=== PATIENT | female | born 1940 | race Caucasian/White ===

== ENCOUNTER 2018-07-25 06:44 | Inpatient (IN) | payer BC ==
[2018-07-19 11:14] VITALS: BMI 27.6
[~2018-07-25 06:44] MED LIST: TRANEXAMIC ACID 1000 MG/10 ML VIAL IVPB ONE; VANCOMYCIN 1,000 MG VIAL (RESTRICTED TO ID ONLY) IVPB ONE
[2018-07-25] MEDS ORDERED: CEFAZOLIN 1 GM/D5W 1 GM/50 ML BAG IVPB ONE (07:22)
[2018-07-25] MEDS ORDERED: GABAPENTIN 300 MG CAPSULE (FP) PO ONE (07:22)
[2018-07-25] MEDS ORDERED: CELECOXIB 200 MG CAPSULE PO ONE (07:22)
[2018-07-25] MEDS ORDERED: oxyCODONE HCL 10 MG SUSTAINED ACTING TABLET PO ONE (07:22)
[2018-07-25] MEDS ORDERED: TRANEXAMIC ACID 1000 MG/10 ML VIAL IVPUSH ONE (07:22)
[2018-07-25] MEDS ORDERED: PANTOPRAZOLE 40 MG TABLET (FP) PO ONE (07:23)
--- NOTE | 2018-07-25 07:42 | HP ---
Admitting History and Physical - Admission Chief Complaint: left knee osteoarthritis x years History of Present Illness: 78 year old female presents in regard to her left knee. Longstanding history of left knee osteoarthritis. Patient complains of pain, limited ROM, difficulty ambulating and difficulty completing activities of daily living. Patient has failed conservative treatment measures including PO medications, injections, exercise programs and activity modifications. At this point, patient wishes to proceed with surgical intervention - left total knee arthroplasty, MAKOplasty. History Source: Patient - Past Medical History Cardiovascular: Yes: HTN Gastrointestinal: Yes: GERD Musculoskeletal: Yes: Osteoarthritis - Past Surgical History Additional Past Surgical History: See written history & physical. - Smoking History Smoking history: Former smoker Have you smoked in the past 12 months: Yes If you are a former smoker, when did you quit?: 10 YEARS AGO - Alcohol/Substance Use Hx Alcohol Use: Yes (BEER 2 PER DAY) Home Medications - Allergies Allergies/Adverse Reactions: Allergies Allergy/AdvReac Type Severity Reaction Status Date / Time bee venom protein (honey bee) Allergy Intermediate Swelling Verified 07/25/18 07 :30 No Known Drug Allergies Allergy Verified 07/25/18 07:30 - Home Medications Home Medications: Ambulatory Orders Amlodipine Besylate 5 mg PO DAILY 07/19/18 Ibuprofen [Advil -] 400 mg PO BID PRN 07/19/18 Omeprazole/Sodium Bicarbonate [Zegerid 40mg Packet] 1 each PO DAILY 07/19/18 Acetaminophen [Tylenol Arthritis] 650 mg PO PRN PRN 07/25/18 Review of Systems - Review of Systems Musculoskeletal: reports: Crepitus (left knee), Decreased ROM (left knee), Joint Pain (left knee), Joint Swelling (left knee) Physical Examination Constitutional: Yes: Well Nourished, No Distress Eyes: Yes: Conjunctiva Clear HENT: Yes: Atraumatic Neck: Yes: Supple Cardiovascular: Yes: Regular Rate and Rhythm Respiratory: Yes: Regular Gastrointestinal: Yes: Soft ...Rectal Exam: Yes: Deferred Musculoskeletal: Yes: Joint Stiffness (left knee), Joint Swelling (left knee) Assessment/Plan This is a 78 year old female presenting in regard to her left knee. Longstanding history of left knee osteoarthritis. Patient complains of pain, limited ROM, difficulty ambulating and difficulty completing activities of daily living. Patient has failed conservative treatment measures including PO medications, injections, exercise programs and activity modifications. At this point, patient wishes to proceed with surgical intervention - left total knee arthroplasty, MAKOplasty. Pros, cons, risks, benefits and alternatives of a left total knee arthroplasty, MAKOplasty were discussed with thr patient at length. Patient confirms their understanding and consents to proceed with a left total knee arthroplasty, MAKOplasty.
[2018-07-25] MEDS ORDERED: BUPIVACAINE LIPOSOME/PF (EXPAREL) 266 MG/20 ML VIAL ONE (08:32)
[2018-07-25] MEDS ORDERED: SODIUM CHLORIDE 0.9% P/F 10 ML VIAL IJ ONE (08:32)
[2018-07-25] MEDS ORDERED: MIDAZOLAM HCL 2 MG/2 ML SINGLE DOSE VIAL ONE ×3 (08:32→11:29)
[2018-07-25] MEDS ORDERED: ceFAZolin SODIUM 1 GM VIAL ONE ×2 (08:35→09:56)
[2018-07-25] MEDS ORDERED: VANCOMYCIN 1,000 MG VIAL (RESTRICTED TO ID ONLY) ONE (08:35)
[2018-07-25] MEDS ORDERED: SUCCINYLCHOLINE CHLORIDE 200 MG/10 ML VIAL ONE (09:48)
[2018-07-25] MEDS ORDERED: PROPOFOL 20 ML ONE (09:48)
[2018-07-25] MEDS ORDERED: DEXAMETHASONE SOD PHOSPHATE 4 MG/1 ML VIAL ONE (09:56)
[2018-07-25] MEDS ORDERED: ONDANSETRON 4 MG/2 ML VIAL ONE (09:56)
[2018-07-25] MEDS ORDERED: TRANEXAMIC ACID 1000 MG/10 ML VIAL ONE (09:56)
[2018-07-25] MEDS ORDERED: VANCOMYCIN 1,000 MG VIAL (RESTRICTED TO ID ONLY) IVPB ONE (12:15)
[2018-07-25] MEDS ORDERED: TRANEXAMIC ACID 1000 MG/10 ML VIAL IVPB ONE (12:28)
[2018-07-25] MEDS ORDERED: ACETAMINOPHEN INJECTION 0 ML IVPB ONE (12:49)
[2018-07-25] MEDS ORDERED: KETOROLAC TROMETHAMINE 30 MG/1 ML VIAL ONE (12:49)
[2018-07-25] MEDS ORDERED: traMADol HCL 50 MG TABLET ONE (12:49)
--- NOTE | 2018-07-25 13:07 | OP ---
Operative Note - Note: Operative Date: 07/25/18 Pre-Operative Diagnosis: Left knee OA Operation: left LIANET TKA Post-Operative Diagnosis: Same as Pre-op Surgeon: Sundeep Aragon Digital Solution Architect: Shanthi Adkins Anesthesia: Spinal Estimated Blood Loss (mls): 100
[2018-07-25] MEDS ORDERED: LACTATED RINGERS SOLUTION 1,000 ML IV SCH ×2 (13:15→13:30)
[2018-07-25] MEDS ORDERED: ONDANSETRON 4 MG/2 ML VIAL IVPUSH PRN ×2 (13:15→13:25)
[2018-07-25] MEDS ORDERED: oxyCODONE HCL 5 MG TABLET PO PRN (13:15)
[2018-07-25] MEDS ORDERED: ACETAMINOPHEN 1000 MG/100 ML VIAL (NON FORMULARY) IVPB ONE (13:20)
[2018-07-25] MEDS ORDERED: MAG HYDROX/AL HYDROX/SIMETH 30 ML UNIT-DOSE CUP PO PRN (13:25)
[2018-07-25] MEDS ORDERED: MAGNESIUM HYDROX 2400MG/30ML ORAL SUSPENSION 30 ML CUP PO PRN (13:25)
[2018-07-25] MEDS ORDERED: KETOROLAC TROMETHAMINE 30 MG/1 ML VIAL IVPUSH SCH (13:30)
[2018-07-25] MEDS: ACETAMINOPHEN 1000 MG/100 ML VIAL (NON FORMULARY) IVPB ONE ×2 (13:30→15:47)
[2018-07-25] MEDS: KETOROLAC TROMETHAMINE 15 MG/ML VIAL IVPUSH SCH ×3 (13:45→21:27)
[2018-07-25] MEDS: traMADol HCL 50 MG TABLET PO SCH ×2 (13:45→20:18)
--- NOTE | 2018-07-25 13:45 | SPEC ---
DATE OF OPERATION: 07/25/2018 PREOPERATIVE DIAGNOSIS: Left knee osteoarthritis. POSTOPERATIVE DIAGNOSIS: Left knee osteoarthritis. PROCEDURE: Left total knee replacement, MAKOplasty robotic navigation. ATTENDING: Elena Pate MD PROFESSOR OF PRACTICE: OSWALDO Soriano ANESTHESIA: Spinal plus sedation. ESTIMATED BLOOD LOSS: 100 mL. COMPLICATIONS: None. DISPOSITION: The patient was transferred to the PACU in stable condition. IMPLANTS USED: [place] Triathlon size 3 femoral component, [place] Triathlon size 2 tibial component, 13-mm posterior-stabilized polyethylene component, 35-mm patellar component. INDICATIONS: This is a 78-year-old female who presented to the office complaining of severe left knee pain. She was seen and examined by Dr. Pate and diagnosed with severe left knee osteoarthritis. She was initially treated non-operatively with injections and medications and physical therapy, but continued to have severe pain and ambulatory dysfunction. She was, therefore, indicated for a left total knee replacement. The risks, benefits, and alternatives to the surgery were explained to the patient in great detail, and she elected to proceed with the procedure. DESCRIPTION OF PROCEDURE: On the day of surgery, the patient was taken to the operating room and placed on the OR table. Spinal anesthesia was administered by the anesthesiologist. The patient was then positioned supine on the table and all bony prominences were padded. The knee was then prepped and draped in the usual sterile fashion and intravenous antibiotics were given for infection prophylaxis. A surgical time-out was then performed with the team, and the patients identity, procedure, side, availability of implants, and the administration of antibiotics was confirmed. With the knee flexed, a midline incision was made and carried down through the subcutaneous fat to the underlying retinaculum. A medial parapatellar arthrotomy was performed. This was followed by a subperiosteal dissection of the tissue off the proximal, medial tibia. A portion of fat pad was removed from under the patellar tendon, and a small portion of fat was excised off the distal supracondylar femur. Electrocautery and an [employer] bipolar sealing device were used to achieve hemostasis. The knee was then flexed further and the anterior horn of the lateral meniscus was released from the midline. Next, the anterior and posterior cruciate ligaments were transected. Grade 4 changes were noted diffusely throughout the knee. Femoral and tibial checkpoints were then placed in the appropriate location using a mallet. Two parallel bicortical self-drilling pins were placed in the tibial diaphysis after making stab incisions and bluntly dissecting down to bone. Two pins were then placed in the distal supracondylar femur. The [employer] navigation arrays were then attached to both the femoral and tibial pins and the lower extremity was then registered to the robotic navigation device using various joint movements, as well as inputting several dozen reference points. The knee was then taken through a full range of motion with a corrective force applied. Alignment in varus/valgus as well as flexion/extension and soft tissue balance was measured in various positions. The navigation device showed a numerical and graphic representation of the soft tissue balance. The components were repositioned virtually using the software until optimal soft tissue balance was achieved on screen. Once this was accomplished, the final plan was saved and sent to the robot. Self-retaining retractors were then placed at the joint line for exposure and protection of the collateral ligaments. The robot was brought into the sterile field and registered with the navigation device. The robotic arm with attached oscillating saw blade was then used to perform femoral and tibial bone cuts as per the saved software plan. The femoral box cut was made using the appropriately sized manual cutting guide. The knee was then irrigated. Trial components were placed and the knee was taken through a full range of motion to assess soft tissue balance and alignment. The range of motion was found to be excellent and the soft tissue balance was optimal and according to plan. The knee was then put into extension and the patella everted. The synovium around the patella was circumscribed with electrocautery. A caliper was used to measure the patellar thickness and a saw was then used to resect the patella at the chondro-osseous junction. The cut surface was then sized and drilled for the appropriate patellar button, with care taken to medialize it. A trial patella was then placed and the knee was again taken through a full range of motion. The knee was found to have both good balance and good patellar tracking. All of the components were removed except the tibial base plate. The appropriate instrumentation was used to drill and punch the proximal tibia for the keel of the final component. All bony surfaces were then cleaned with pulsatile lavage and dried. Bone cement was then prepared on the back table, and final components were cemented in place in the usual fashion. Extruded cement was removed. The polyethylene trial was placed, the knee was put into extension, and axial pressure was applied for compression while the cement hardened. The patellar button was similarly cemented into place. Once the cement had hardened, the knee was taken through a full range of motion to assess stability, balance, and patellar tracking. This was found to be optimal and the trial polyethylene was exchanged for the appropriately sized real implant. The wound was then thoroughly irrigated with normal saline. A 3-minute dilute Betadine lavage was performed. The knee was again irrigated using a pulsatile lavage device. A periarticular injection was used to locally infiltrate the capsular tissues surrounding the implant and prosthesis. Then No. 1 Polysorb and 0 VLoc 180 barbed sutures were used to close the arthrotomy. Then No. 1 Polysorb and 2-0 VLoc 90 sutures were used in the subcutaneous tissues. Then 4-0 undyed Vicryl and Dermabond skin adhesive was used to close the stab incisions made for the navigation pins. The skin was closed using both 3-0 VLoc 90 suture in a running subcuticular fashion and Dermabond skin adhesive. Once this was completed a sterile Aquacel dressing and compressive José Antonio-wrap was applied. The patient was then awakened and taken to the PACU in stable condition. ELENA PATE M.D. [id number]
[2018-07-25] MEDS: CEFAZOLIN 2 GM/D5W 2 GM/50 ML ML IVPB SCH (18:28)
[2018-07-25] MEDS ORDERED: DEXAMETHASONE SOD PHOSPHATE 10 MG/1 ML VIAL IVPB ONE (20:00)
[2018-07-25] MEDS: ACETAMINOPHEN 325 MG TABLET (FP) PO SCH (20:19)
[2018-07-25] MEDS: CELECOXIB 200 MG CAPSULE PO SCH (21:29)
[2018-07-25] MEDS: oxyCODONE HCL 10 MG SUSTAINED ACTING TABLET PO SCH (21:29)
[2018-07-25] MEDS: SENNOSIDES/DOCUSATE COMBO (SENNA PLUS) TABLET (UD) PO SCH (21:29)
[2018-07-25] MEDS: GABAPENTIN 300 MG CAPSULE (FP) PO SCH (21:29)
[2018-07-25] MEDS: ASCORBIC ACID 500 MG TABLET (FP) PO SCH (21:29)
[2018-07-25] MEDS ORDERED: GABAPENTIN 300 MG CAPSULE (FP) PO SCH (22:00)
[2018-07-26] MEDS: traMADol HCL 50 MG TABLET PO SCH ×4 (01:03→21:50)
[2018-07-26] MEDS: ACETAMINOPHEN 325 MG TABLET (FP) PO SCH ×4 (01:04→21:50)
[2018-07-26] MEDS: CEFAZOLIN 2 GM/D5W 2 GM/50 ML ML IVPB SCH (01:05)
[2018-07-26] MEDS: KETOROLAC TROMETHAMINE 15 MG/ML VIAL IVPUSH SCH (03:00)
[2018-07-26] MEDS: oxyCODONE HCL 5 MG TABLET PO PRN ×2 (06:43→17:22)
[2018-07-26 08:01] LABS: CALCIUM 8.6 mg/dl (8.5-10); POTASSIUM 4.3 mmol/L (3.5-5.1)
[2018-07-26 08:03] LABS: HEMATOCRIT 32.5 % (32.4-45.2); MCH 28.4 pg (25.7-33.7); MCHC 33.8 g/dl (32.0-36.0); MEAN PLT VOLUME 9.7 fl (7.5-11.1); PLATELET COUNT 151 K/MM3 (134-434); RBC 3.87 M/mm3 (3.60-5.2); RDW 13.6 % (11.6-15.6); WHITE BLOOD COUNT 9.3 K/mm3 (4.0-10.8)
[2018-07-26] MEDS: ASPIRIN 325 MG TABLET PO SCH (08:07)
[2018-07-26] MEDS: CELECOXIB 200 MG CAPSULE PO SCH ×2 (09:33→21:54)
[2018-07-26] MEDS: GABAPENTIN 300 MG CAPSULE (FP) PO SCH ×2 (09:33→21:54)
[2018-07-26] MEDS: oxyCODONE HCL 10 MG SUSTAINED ACTING TABLET PO SCH ×2 (09:34→21:54)
[2018-07-26] MEDS: amLODIPine BESYLATE 5 MG TABLET (FP) PO SCH (09:34)
[2018-07-26] MEDS: SENNOSIDES/DOCUSATE COMBO (SENNA PLUS) TABLET (UD) PO SCH ×2 (09:35→21:53)
[2018-07-26] MEDS: ASCORBIC ACID 500 MG TABLET (FP) PO SCH ×2 (09:35→21:54)
[2018-07-26] MEDS: PANTOPRAZOLE 40 MG TABLET (FP) PO SCH (09:35)
[2018-07-26] MEDS: MULTIVITAMINS (DAILY MVI) TABLET (FP) PO SCH (09:35)
--- NOTE | 2018-07-26 11:26 | PN ---
Progress Note, Physician Chief Complaint: s/p left total knee replacement under spinal anesthesia History of Present Illness: post op day one, peripheral nerve block for post op pain control. - Current Medication List Current Medications: Active Medications Acetaminophen (Tylenol -) 650 mg PO Q6H [facility] Stop: 07/28/18 19:59 Last Admin: 07/26/18 08:09 Dose: 650 mg Al Hydroxide/Mg Hydroxide (Mylanta Oral Suspension -) 30 ml PO Q4H PRN PRN Reason: DYSPEPSIA Amlodipine Besylate (Norvasc -) 5 mg PO DAILY [facility] Last Admin: 07/26/18 09:34 Dose: 5 mg Ascorbic Acid (Vitamin C -) 500 mg PO BID [facility] Last Admin: 07/26/18 09:35 Dose: 500 mg Aspirin (Asa -) 325 mg PO DAILY@0800 [facility] Last Admin: 07/26/18 08:07 Dose: 325 mg Celecoxib (Celebrex -) 200 mg PO BID [facility] Last Admin: 07/26/18 09:33 Dose: 200 mg Fentanyl (Sublimaze Injection -) 50 mcg IVPUSH [id number] PRN PRN Reason: PAIN-PACU ORDER X 4 DOSES ONLY Gabapentin (Neurontin -) 300 mg PO BID [facility] Stop: 07/28/18 21:59 Last Admin: 07/26/18 09:33 Dose: 300 mg Lactated Ringer's (Lactated Ringers Solution) 1,000 mls @ 125 mls/hr IV ASDIR [facility] Last Admin: 07/25/18 15:10 Dose: Not Given Magnesium Hydroxide (Milk Of Magnesia -) 30 ml PO PRN PRN PRN Reason: CONSTIPATION Multivitamins/Minerals/Vitamin C (Tab-A-Vit -) 1 tab PO DAILY [facility] Last Admin: 07/26/18 09:35 Dose: 1 tab Ondansetron HCl (Zofran Injection) 4 mg IVPUSH Q6H PRN PRN Reason: NAUSEA Oxycodone HCl (Roxicodone -) 10 mg PO Q3H PRN PRN Reason: PAIN LEVEL 6-10 Oxycodone HCl (Roxicodone -) 5 mg PO Q3H PRN PRN Reason: PAIN LEVEL 1-5 Last Admin: 07/26/18 06:43 Dose: 5 mg Oxycodone HCl (Oxycontin -) 10 mg PO BID [facility] Stop: 07/28/18 13:16 Last Admin: 07/26/18 09:34 Dose: 10 mg Pantoprazole Sodium (Protonix -) 40 mg PO DAILY [facility] Last Admin: 07/26/18 09:35 Dose: 40 mg Senna/Docusate Sodium (Pericolace -) 2 tablet PO BID [facility] Last Admin: 07/26/18 09:35 Dose: 2 tablet Tramadol HCl (Ultram -) 50 mg PO Q6H [facility] Last Admin: 07/26/18 08:08 Dose: 50 mg - Objective Vital Signs: Vital Signs Temperature 97.9 F 07/26/18 09:00 Pulse Rate 72 07/26/18 09:00 Respiratory Rate 20 07/26/18 09:00 Blood Pressure 133/61 07/26/18 09:00 O2 Sat by Pulse Oximetry (%) 100 07/26/18 05:00 Constitutional: Yes: Well Nourished Cardiovascular: Yes: WNL Respiratory: Yes: WNL Gastrointestinal: Yes: WNL Labs: CBC, BMP 07/26/18 07:13 07/26/18 07:13 Assessment/Plan No adverse effects of anesthetic, pain controlled, dept of anesthesia will sign off care at this time.
--- NOTE | 2018-07-26 19:07 | PN ---
Progress Note (short form) - Note Progress Note: Pt seen and examined. Doing well AVSS Selected Entries 07/26/18 07/26/18 14:07 18:40 Temperature 98.3 F Pulse Rate 88 Respiratory 20 Rate Blood Pressure 140/73 O2 Sat by Pulse 99 Oximetry (%) Laboratory Tests 07/26/18 07/26/18 07:13 07:13 WBC 9.3 Hgb 11.0 Hct 32.5 Plt Count 151 Sodium 132 L Potassium 4.3 Chloride 97 L Carbon Dioxide 26 Anion Gap 9 BUN 20.0 H Creatinine 1.0 Est GFR (CKD-EPI)AfAm 62.05 Est GFR (CKD-EPI)NonAf 53.54 Random Glucose 142 H Calcium 8.6 Gen: NAD LLE: c/d/i, NVID A/P POD#1 s/p L LIANET TKA PT/OOB - WBAT LLE D/C home in AM
[2018-07-27 01:03] VITALS: PULSE 67
[2018-07-27] MEDS: traMADol HCL 50 MG TABLET PO SCH (03:11)
[2018-07-27] MEDS: ACETAMINOPHEN 325 MG TABLET (FP) PO SCH ×2 (03:12→08:02)
[2018-07-27 06:04] VITALS: BP 136/62; TEMP 98.2
[2018-07-27] MEDS: ASPIRIN 325 MG TABLET PO SCH (08:00)
[2018-07-27 08:24] LABS: HEMATOCRIT 31.5 % (32.4-45.2); HEMOGLOBIN 10.4 GM/dl (10.7-15.3); MCH 27.3 pg (25.7-33.7); MCHC 32.8 g/dl (32.0-36.0); MEAN CELL VOLUME 83.1 fl (80-96); MEAN PLT VOLUME 9.7 fl (7.5-11.1); PLATELET COUNT 150 K/MM3 (134-434); RBC 3.79 M/mm3 (3.60-5.2); RDW 13.2 % (11.6-15.6); WHITE BLOOD COUNT 6.9 K/mm3 (4.0-10.8)
--- NOTE | 2018-07-27 10:54 | DS ---
Physical Examination Vital Signs: Vital Signs Temperature 98.2 F 07/27/18 05:00 Pulse Rate 67 07/27/18 05:00 Respiratory Rate 18 07/27/18 05:00 Blood Pressure 136/62 07/27/18 05:00 O2 Sat by Pulse Oximetry (%) 97 07/27/18 05:00 Labs: CBC, BMP 07/27/18 07:12 07/26/18 07:13 Discharge Summary Reason For Visit: LEFT KNEE OSTEOARTHRITIS Current Active Problems Osteoarthritis of left knee (Acute) Procedures: Principal: left joseph TKA Hospital Course: Admitted for elective surgery. Procedure performed without complications. Pt received postoperative antibiotic prophylaxis and DVT ppx. Ambulated with physical therapy. Stable for discharge home with outpatient followup. Condition: Stable - Instructions Diet, Activity, Other Instructions: Dr. Aragon - Knee Replacement Instructions Keep the Aquacel dressing on until removed by Dr. Aragon in the office it is antibacterial and waterproof and you can shower with it on. Call the office for a follow-up appointment with Dr. Aragon on August 07. Take one Aspirin 325mg daily for 6 weeks to prevent blood clots in your legs. Continue taking Omeprazole daily for the next 6 weeks to protect against heartburn and ulcers. Take Cephalexin (antibiotic) 3x/day for 10 days to help prevent skin infection. Take Celebrex 200mg daily for 30 days to reduce swelling and inflammation. Take a multivitamin, stool softener, and extra Vitamin C supplement daily. For pain: *Mild pain (1-3/10): Take 1 Tramadol tablet every 4 hours as needed. Moderate pain (4-6/10): Take 1 Tramadol tablet and 1 Percocet tablet every 4 hours as needed. Severe pain (7-10/10): Take 1 Tramadol tablet and 2 Percocet tablets every 4 hours as needed. Activity: You can put as much weight on the operative leg as you want. Right after you get home, there will be a physical therapist coming to your house to help you walk around and bend/straighten your knee. After your follow-up appointment, you will be sent for more intensive outpatient physical therapy which will include machines and equipment that the home therapist cannot bring to your house. Always use a walker or cane for balance and to prevent falls. Expect to see swelling/bruising from the operative site all the way down to your toes. Wear the compression stocking on the operative side during the day to minimize how much swelling there is in your foot/ankle. Don't wear the stocking at night. You don't have to wear a stocking on the other side. Disposition: [facility]/HOME HEALTH CARE - Home Medications Comprehensive Discharge Medication List: Ambulatory Orders Amlodipine Besylate 5 mg PO DAILY 07/19/18 Omeprazole/Sodium Bicarbonate [Zegerid 40mg Packet] 1 each PO DAILY 07/19/18 Ascorbic Acid [Vitamin C -] 500 mg PO BID tablet 07/27/18 Aspirin [ASA -] 325 mg PO DAILY@0800 tablet 07/27/18 Celecoxib [CeleBREX -] 200 mg PO DAILY #30 capsule 07/27/18 Cephalexin Monohydrate [Keflex -] 500 mg PO TID #30 capsule 07/27/18 Multivitamins [Multivit ([facility] Formulary)] 1 tab PO DAILY tab 07/27/18 Oxycodone HCl/Acetaminophen [Percocet 5-325 mg Tablet] 1 - 2 tab PO Q4H PRN #60 tablet MDD 10 07/27/18 Sennosides/Docusate Sodium [Pericolace -] 2 tablet PO BID tablet 07/27/18 traMADol HCL [Ultram -] 50 mg PO Q4H PRN #42 tablet MDD 6 07/27/18
[2018-07-27] MEDS: oxyCODONE HCL 10 MG SUSTAINED ACTING TABLET PO SCH (12:11)
[2018-07-27] MEDS: PANTOPRAZOLE 40 MG TABLET (FP) PO SCH (12:12)
[2018-07-27] MEDS: MULTIVITAMINS (DAILY MVI) TABLET (FP) PO SCH (12:12)
[2018-07-27] MEDS: GABAPENTIN 300 MG CAPSULE (FP) PO SCH (12:12)
[2018-07-27] MEDS: CELECOXIB 200 MG CAPSULE PO SCH (12:12)
[2018-07-27] MEDS: ASCORBIC ACID 500 MG TABLET (FP) PO SCH (12:12)
[2018-07-27] MEDS: amLODIPine BESYLATE 5 MG TABLET (FP) PO SCH (12:12)
[2018-07-27] MEDS: SENNOSIDES/DOCUSATE COMBO (SENNA PLUS) TABLET (UD) PO SCH (12:13)
--- NOTE | 2018-07-29 17:40 | PATH ---
Surgical Pathology Report Patient Name: MYNOR HANEY Med. Rec. #: [id number] /Age/Gender: 1940 (Age: 78) / F Account: [id number] Location: [facility] MED-SURG Taken: 07/25/2018 Received: 07/25/2018 Reported: 07/29/2018 Physicians: Sundeep Aragon M.D. Specimen(s) Received BONE LEFT KNEE Clinical History Left knee osteoarthritis Final Diagnosis BONE, KNEE, LEFT, TOTAL KNEE REPLACEMENT MAKOPLASTY: BONE WITH DEGENERATIVE JOINT DISEASE. Electronically Signed Rosario Cuello M.D. Gross Description Received in formalin labeled "bone left knee," is a 10.5 x 6.5 x 1.7 cm aggregate of multiple portions of bone and soft tissue, consistent with knee bones. One of the articular surfaces displays a 2.4 cm in greatest dimension area of eburnation. The remaining articular surfaces are calloway-brown and diffusely granular. The underlying trabecular bone is yellow and hard. Fuel Handler sections are submitted in one cassette, following decalcification. /07/26/2018 [facility]07/26/2018
== END 2018-07-27 11:45 | disposition home health service (06) | DRG 470 ==
LOC: FM/S 06:44
PROVIDERS: ADMIT Student in an Organized Health Care Education/Training Program; ATTEND Student in an Organized Health Care Education/Training Program
PROC: 8E0Y0CZ Robotic Assisted Procedure of Lower Extremity, Open Approach (ICD-10-PCS; 2018-07-25)
PROC: 0SRD0J9 Replacement of Left Knee Joint with Synthetic Substitute, Cemented, Open Approach (ICD-10-PCS; principal; 2018-07-25 10:22)
DX: M17.12 Unilateral primary osteoarthritis, left knee (principal); I10 Essential (primary) hypertension; K21.9 Gastro-esophageal reflux disease without esophagitis
CPT/HCPCS: 36415; 73560-TC-LT-FY; 80048; 85027; 88305-TC; 88311-TC; 94760; 97116-GP; 97163-GP; J0131; J1100

== ENCOUNTER 2023-06-22 15:18 | Inpatient (IN) | payer BC, OTHER ==
[2023-06-22] MEDS: SODIUM CHLORIDE 0.9% 500 ML INFUS.BAG IV ONE ×4 (15:35→23:43)
[2023-06-22 15:37] LABS: HEMOGLOBIN 12.8 GM/dL (10.7-15.3); MCH 29.4 pg (25.7-33.7); MCHC 34.7 g/dl (32.0-36.0); MEAN CELL VOLUME 84.7 fl (80-96); MEAN PLT VOLUME 9.3 fl (7.5-11.1); PLATELET COUNT 56 10^3/uL (134-434); RBC 4.37 M/mm3 (3.60-5.2); RDW 16.1 % (11.6-15.6); WHITE BLOOD COUNT 5.6 K/mm3 (4.0-10.0)
[2023-06-22 15:45] LABS: INR 0.86 (0.83-1.09); PROTHROMBIN TIME (PATIENT) 9.8 SEC (9.7-13.0)
[2023-06-22] MEDS ORDERED: PIPERACILLIN/TAZOB 4.5 GM 4.5 GM/100 ML BAG IVPB ONE (15:45)
[2023-06-22] MEDS ORDERED: HYDROCORTISONE SOD SUCCINATE 100 MG/2 ML VIAL ONE (15:46)
[2023-06-22] MEDS ORDERED: AZITHROMYCIN IVPB 500 MG/250 ML BAG IVPB ONE ×2 (15:46→15:54)
[2023-06-22 15:50] LABS: VENOUS BASE EXCESS -6.7 mmol/L (-2-2); VENOUS O2 SATURATION 39.8 % (70-80); VENOUS PCO2 38.3 mmHg (38-52); VENOUS PH 7.312 (7.310-7.410)
[2023-06-22] MEDS: PIPERACILLIN/TAZOB 4.5 GM 4.5 GM in DEXTROSE 5%-WATER - 100 ML IVPB ONE (15:50)
[2023-06-22] MEDS: HYDROCORTISONE SOD SUCCINATE 100 MG/2 ML VIAL IVPUSH ONE (15:50)
[2023-06-22] MEDS: AZITHROMYCIN IVPB 500 MG in DEXTROSE 5%-WATER - 250 ML IVPB ONE (15:50)
[2023-06-22 16:03] LABS: CHLORIDE 96 mmol/L (98-107); POTASSIUM 5.1 mmol/L (3.5-5.1); SODIUM 129 mmol/L (136-145)
[2023-06-22 16:05] LABS: ALBUMIN 2.8 g/dl (3.4-5.0); ANION GAP 13 mmol/L (4-13); CALCIUM 8.2 mg/dL (8.5-10.1); CO2 21 mmol/L (21-32); GLUCOSE,RANDOM 130 mg/dL (74-106)
[2023-06-22 16:09] LABS: CREATININE 1.2 mg/dL (0.55-1.3); SGOT/AST 42 U/L (15-37); SGPT/ALT 33 U/L (13-61)
[2023-06-22 16:11] LABS: ANISOCYTOSIS 0; BILIRUBIN,TOTAL 1.4 mg/dL (0.2-1); MACROCYTOSIS 0; TOT PROT 5.7 g/dl (6.4-8.2)
[2023-06-22 16:12] LABS: ALK PHOS 208 U/L (45-117)
[2023-06-22 16:13] LABS: N-TERMINAL BNP 1617.8 pg/ml (5-450)
[2023-06-22 16:23] LABS: EPI CELLS >36 /uL (0-25.1); HYALINE CASTS 505 /uL (0-3.1); URINE APPEARANCE Turbid; URINE BACTERIA 4020 /uL (0-1359); URINE BILIRUBIN Small (NEGATIVE); URINE COLOR DK YELLOW; URINE GLUCOSE (UA) Negative (NEGATIVE); URINE KETONE Negative (NEGATIVE); URINE LEUK ESTERASE Large (NEGATIVE); URINE NITRITE Negative (NEGATIVE); URINE PROTEIN 300 (NEGATIVE); URINE UROBILINOGEN 0.2 mg/dL (0.2-1.0); URINE WBC 33048 /uL (0-25.8)
[2023-06-22] MEDS: VANCOMYCIN 1,000 MG in DEXTROSE 5%-WATER - 250 ML IVPB ONE (16:56)
[2023-06-22] MEDS ORDERED: ACETAMINOPHEN INJECTION 100 ML IVPB ONE (16:56)
[2023-06-22] MEDS: ACETAMINOPHEN 1000 MG/100 ML BAG IVPB ONE (16:56)
[2023-06-22] MEDS ORDERED: VANCOMYCIN 1 GRAM (PRE-DOCKED) 1,000 MG/250 ML BAG IVPB ONE (16:56)
[2023-06-22 16:59] LABS: URINE CRYSTALS FEW /hpf; URINE RBC 602.7 /uL (0-23.9); YEAST NONE SEEN (NEGATIVE)
[2023-06-22] MEDS ORDERED: ONDANSETRON 4 MG/2 ML VIAL ONE (18:08)
[2023-06-22] MEDS: ONDANSETRON 4 MG/2 ML VIAL IVPUSH ONE (18:15)
[2023-06-22] MEDS ORDERED: NOREPINEPHRINE BITARTRATE/D5W 8 MG/250 ML BAG IVPB ONE (18:45)
[2023-06-22] MEDS: NOREPINEPHRINE BITARTRATE IV STA (18:52)
[2023-06-22] MEDS: WATER IV STA (18:52)
[2023-06-22] MEDS: DEXTROSE 5% IV STA (18:52)
[2023-06-22] MEDS: NOREPINEPHRINE BITARTRATE 8,000 MCG in DEXTROSE 5%-WATER - 492 ML IV STA (19:09)
[2023-06-22] MEDS ORDERED: TRIMETHOBENZAMIDE HCL 200MG/2ML INJ IM ONE (19:34)
[2023-06-22] MEDS ORDERED: VASopressin 20 UNITS/ML VIAL IV ONE ×2 (19:39)
[2023-06-22] MEDS: TRIMETHOBENZAMIDE HCL 200MG/2ML INJ IM ONE (19:40)
[2023-06-22 23:00] LABS: ARTERIAL BLD GAS O2 SATURATION 99.8 % (95-98); ARTERIAL BLOOD GAS BASE EXCESS -10.4 mmol/L (-2-2); ARTERIAL BLOOD GAS PO2 360.2 mmHg (80-100); ARTERIAL BLOOD GAS pH 7.328 (7.350-7.450)
[2023-06-22 23:02] LABS: HEMATOCRIT 30.3 % (32.4-45.2); HEMOGLOBIN 10.3 GM/dL (10.7-15.3); MCH 29.1 pg (25.7-33.7); MEAN CELL VOLUME 85.4 fl (80-96); MEAN PLT VOLUME 9.4 fl (7.5-11.1); PLATELET COUNT 54 10^3/uL (134-434); RBC 3.54 M/mm3 (3.60-5.2); RDW 16.1 % (11.6-15.6); WHITE BLOOD COUNT 7.4 K/mm3 (4.0-10.0)
[2023-06-22] MEDS: VASopressin 40 UNITS/100 ML BAG IV SCH (23:02)
[2023-06-22 23:09] LABS: INR 0.93 (0.83-1.09); PROTHROMBIN TIME (PATIENT) 10.5 SEC (9.7-13.0)
[2023-06-22 23:11] LABS: ACTIVATED PTT 22.5 SECONDS (25.2-36.5)
[2023-06-22 23:14] LABS: ALBUMIN 2.3 g/dl (3.4-5.0); BLOOD UREA NITROGEN 48.3 mg/dL (7-18)
[2023-06-22 23:17] LABS: PHOSPHOROUS 3.7 mg/dL (2.5-4.9)
[2023-06-22 23:19] LABS: BILIRUBIN,TOTAL 1.4 mg/dL (0.2-1); TOT PROT 4.6 g/dl (6.4-8.2)
[2023-06-22 23:20] LABS: N-TERMINAL BNP 1325.6 pg/ml (5-450)
[2023-06-22] MEDS: CHLORHEXIDINE GLUCONATE 4% CLEANSER FOR DECOLONIZATION TP SCH (23:42)
[2023-06-22] MEDS: MUPIROCIN 2% TOPICAL OINTMENT FOR DECOLONIZATION NS SCH (23:42)
[2023-06-22] MEDS: HEPARIN NA (PORCINE) 5,000 UNITS/ML 1ML VIAL SQ SCH (23:42)
[2023-06-22] MEDS ORDERED: NOREPINEPHRINE BITARTRATE/D5W 8 MG/250 ML BAG IVPB SCH (23:45)
[2023-06-22 23:57] LABS: ANISOCYTOSIS 1+; MACROCYTOSIS 1+; OVALOCYTE 1+
[2023-06-23] LABS: PLATELET ESTIMATE DECREASED
[2023-06-23] MEDS: PIPERACILLIN/TAZOB 4.5 GM 4.5 GM in DEXTROSE 5%-WATER 100 ML IVPB SCH ×2 (00:32→12:41)
[2023-06-23] MEDS: HYDROmorphone HCl 2 MG/ML VIAL IVPUSH ONE (00:51)
[2023-06-23 04:47] LABS: EPI CELLS >36 /uL (0-25.1); HYALINE CASTS 577 /uL (0-3.1); PH,URINE 5.5 (5.0-8.0); URINE APPEARANCE Turbid; URINE BACTERIA 1282 /uL (0-1359); URINE BILIRUBIN Negative (NEGATIVE); URINE COLOR YELLOW; URINE GLUCOSE (UA) Negative (NEGATIVE); URINE KETONE Trace (NEGATIVE); URINE LEUK ESTERASE Large (NEGATIVE); URINE NITRITE Negative (NEGATIVE); URINE PROTEIN 2+ (NEGATIVE); URINE RBC 115 /uL (0-23.9); URINE UROBILINOGEN 0.2 mg/dL (0.2-1.0); URINE WBC 8666 /uL (0-25.8)
[2023-06-23 05:53] LABS: HEMATOCRIT 27.4 % (32.4-45.2); HEMOGLOBIN 9.3 GM/dL (10.7-15.3); MCH 29.2 pg (25.7-33.7); MCHC 34.1 g/dl (32.0-36.0); MEAN CELL VOLUME 85.6 fl (80-96); PLATELET COUNT 52 10^3/uL (134-434); RDW 16.2 % (11.6-15.6); WHITE BLOOD COUNT 7.8 K/mm3 (4.0-10.0)
[2023-06-23 06:15] LABS: INR 0.97 (0.83-1.09); POTASSIUM 3.7 mmol/L (3.5-5.1)
[2023-06-23 06:18] LABS: ACTIVATED PTT 26.7 SECONDS (25.2-36.5); ALBUMIN 2.2 g/dl (3.4-5.0); BLOOD UREA NITROGEN 48.9 mg/dL (7-18); CALCIUM 7.1 mg/dL (8.5-10.1)
[2023-06-23 06:22] LABS: CREATININE 1.1 mg/dL (0.55-1.3); PHOSPHOROUS 3.4 mg/dL (2.5-4.9)
[2023-06-23 06:23] LABS: BILIRUBIN,TOTAL 1.2 mg/dL (0.2-1); TOT PROT 4.6 g/dl (6.4-8.2)
[2023-06-23] MEDS ORDERED: ALBUTEROL SO4 2.5/IPRATROPIUM 0.5 INH SOL 3 ML VIAL.NEB. NEB PRN (06:33)
[2023-06-23] MEDS ORDERED: IPRATROPIUM BR 0.02% 0.5 MG/2.5 ML VIAL.NEB. NEB PRN (06:33)
[2023-06-23 07:19] LABS: ANISOCYTOSIS 3+; MACROCYTOSIS 3+; ROULEAU 3+
[2023-06-23] MEDS: FUROSEMIDE 40 MG/4 ML INJECTABLE VIAL IVPUSH SCH (07:30)
[2023-06-23] MEDS: methylPREDNISolone NA SUCC 125 MG/2 ML VIAL IVPUSH SCH (07:30)
[2023-06-23 07:42] LABS: ARTERIAL BLD GAS O2 SATURATION 97.2 % (95-98); ARTERIAL BLOOD GAS BASE EXCESS -11.4 mmol/L (-2-2); ARTERIAL BLOOD GAS PO2 109.9 mmHg (80-100); ARTERIAL BLOOD GAS pH 7.235 (7.350-7.450)
[2023-06-23] MEDS: COLLAGENASE CLOSTRIDIUM HIST. 30 GRAMS TUBE TP SCH (09:35)
[2023-06-23] MEDS: PANTOPRAZOLE SODIUM 40 MG VIAL IVPUSH SCH (09:35)
[2023-06-23] MEDS ORDERED: PIPERACILLIN/TAZOB 4.5 GM 4.5 GM in DEXTROSE 5%-WATER 100 ML IVPB SCH (10:00)
[2023-06-23] MEDS ORDERED: predniSONE 20 MG TABLET (UD) PO SCH (10:00)
[2023-06-23] MEDS ORDERED: FUROSEMIDE 40 MG/4 ML INJECTABLE VIAL IVPUSH SCH (10:00)
[2023-06-23] MEDS: NOREPINEPHRINE BITARTRATE/D5W 8 MG/250 ML BAG IVPB SCH (12:11)
[2023-06-23] MEDS: VANCOMYCIN 1,000 MG in DEXTROSE 5%-WATER - 250 ML IVPB SCH (12:41)
[2023-06-23] MEDS: MEROPENEM 1 GM in DEXTROSE 5%-WATER 100 ML IVPB SCH (13:03)
[2023-06-23] MEDS ORDERED: VANCOMYCIN/WATER FOR INJ (PEG) 1,000 MG/200 ML BAG IVPB SCH (17:00)
[2023-06-23] MEDS: HYDROmorphone HCl 2 MG/ML VIAL IVPUSH PRN (17:46)
[2023-06-23] MEDS: VANCOMYCIN/WATER FOR INJ (PEG) 1,000 MG/200 ML BAG IVPB ONE (18:07)
[2023-06-23] MEDS ORDERED: CHLORHEXIDINE GLUCONATE 4% CLEANSER FOR DECOLONIZATION TP SCH (22:00)
[2023-06-23] MEDS: INSULIN ASPART SLIDING SCALE (NOVOLOG) 1 VIAL SQ SCH (22:34)
[2023-06-23] MEDS: ATORVASTATIN CA 40 MG TABLET (FP) PO SCH (22:34)
[2023-06-23] MEDS: ACETAMINOPHEN 1000 MG/100 ML BAG IVPB ONE (22:40)
[2023-06-24 07:32] LABS: HEMATOCRIT 26.3 % (32.4-45.2); HEMOGLOBIN 8.9 GM/dL (10.7-15.3); MCH 29.5 pg (25.7-33.7); MEAN CELL VOLUME 86.7 fl (80-96); MEAN PLT VOLUME 9.8 fl (7.5-11.1); PLATELET COUNT 51 10^3/uL (134-434); RBC 3.03 M/mm3 (3.60-5.2); RDW 16.6 % (11.6-15.6); WHITE BLOOD COUNT 11.1 K/mm3 (4.0-10.0)
[2023-06-24 07:37] LABS: POTASSIUM 3.6 mmol/L (3.5-5.1)
[2023-06-24 07:39] LABS: BLOOD UREA NITROGEN 50.3 mg/dL (7-18); CALCIUM 7.3 mg/dL (8.5-10.1)
[2023-06-24 07:41] LABS: ALBUMIN 2.2 g/dl (3.4-5.0)
[2023-06-24 07:42] LABS: CREATININE 1.2 mg/dL (0.55-1.3); PHOSPHOROUS 3.6 mg/dL (2.5-4.9)
[2023-06-24 07:45] LABS: BILIRUBIN,TOTAL 1.1 mg/dL (0.2-1); TOT PROT 4.8 g/dl (6.4-8.2)
[2023-06-24] MEDS: INSULIN ASPART SLIDING SCALE (NOVOLOG) 1 VIAL SQ SCH (08:09)
[2023-06-24 09:16] LABS: ANISOCYTOSIS 0; HELMET CELLS 0; HOWELL-JOLLY BODIES 0; MACROCYTOSIS 0; OVALOCYTE 0; ROULEAU 0; SICKELED CELLS 0; TARGET CELLS 0; TEAR DROP CELLS 0; TOXIC GRANULATION 0
[2023-06-24] MEDS ORDERED: IPRATROPIUM BR 0.02% 0.5 MG/2.5 ML VIAL.NEB. NEB PRN (11:29)
[2023-06-24] MEDS: NOREPINEPHRINE BITARTRATE/D5W 8 MG/250 ML BAG IVPB SCH (11:30)
[2023-06-24] MEDS: predniSONE 20 MG TABLET (UD) PO SCH (12:03)
[2023-06-24] MEDS: methylPREDNISolone NA SUCC 125 MG/2 ML VIAL IVPUSH SCH (12:14)
[2023-06-24] MEDS: PANTOPRAZOLE SODIUM 40 MG VIAL IVPUSH SCH (12:15)
[2023-06-24] MEDS ORDERED: methylPREDNISolone NA SUCC 125 MG/2 ML VIAL IVPUSH SCH (15:00)
[2023-06-24] MEDS: FUROSEMIDE 40 MG/4 ML INJECTABLE VIAL IVPUSH SCH (15:00)
[2023-06-24] MEDS: HYDROmorphone HCl 2 MG/ML VIAL IVPUSH PRN (16:23)
[2023-06-24] MEDS ORDERED: ACETAMINOPHEN 1000 MG/100 ML BAG IVPB PRN (19:30)
[2023-06-24] MEDS: ATORVASTATIN CA 40 MG TABLET (FP) PO SCH (21:31)
[2023-06-25 06:33] LABS: HEMATOCRIT 22.1 % (32.4-45.2); HEMOGLOBIN 7.7 GM/dL (10.7-15.3); MCH 29.5 pg (25.7-33.7); MEAN CELL VOLUME 84.4 fl (80-96); MEAN PLT VOLUME 9.4 fl (7.5-11.1); RBC 2.62 M/mm3 (3.60-5.2); RDW 16.8 % (11.6-15.6); WHITE BLOOD COUNT 7.5 K/mm3 (4.0-10.0)
[2023-06-25 06:38] LABS: CHLORIDE 97 mmol/L (98-107); SODIUM 130 mmol/L (136-145)
[2023-06-25 06:40] LABS: CALCIUM 7.4 mg/dL (8.5-10.1); GLUCOSE,RANDOM 139 mg/dL (74-106); PLATELET COUNT 33 10^3/uL (134-434)
[2023-06-25 06:41] LABS: ALBUMIN 1.9 g/dl (3.4-5.0); BLOOD UREA NITROGEN 52.2 mg/dL (7-18); CO2 19 mmol/L (21-32); MAGNESIUM 1.9 mg/dL (1.8-2.4)
[2023-06-25 06:43] LABS: SGPT/ALT 15 U/L (13-61)
[2023-06-25 06:44] LABS: CREATININE 1.3 mg/dL (0.55-1.3); SGOT/AST 26 U/L (15-37)
[2023-06-25 06:45] LABS: BILIRUBIN,TOTAL 0.8 mg/dL (0.2-1); TOT PROT 4.1 g/dl (6.4-8.2)
[2023-06-25 06:51] LABS: INR 0.96 (0.83-1.09); PROTHROMBIN TIME (PATIENT) 10.9 SEC (9.7-13.0)
[2023-06-25 07:10] LABS: ALK PHOS 210 U/L (45-117); ANION GAP 14 mmol/L (4-13); POTASSIUM 2.9 mmol/L (3.5-5.1)
[2023-06-25] MEDS: MAGNESIUM 1GM/D5W - 1 GM/100 ML IVPB IVPB ONE (08:26)
[2023-06-25] MEDS: KCL 20 MEQ PREMIX BAG 20 MEQ/100 ML INFUS.BAG IVPB SCH (08:28)
[2023-06-25 09:18] LABS: ARTERIAL BLD GAS O2 SATURATION 99.3 % (95-98); ARTERIAL BLOOD GAS BASE EXCESS -3.8 mmol/L (-2-2); ARTERIAL BLOOD GAS pH 7.444 (7.350-7.450)
[2023-06-25 09:18] LABS: ANISOCYTOSIS 0; MACROCYTOSIS 0
[2023-06-25 09:19] LABS: ALLENS TEST POSITIVE
[2023-06-25] MEDS: KCL 10 MEQ IVPB 10 MEQ/100 ML INFUS.BAG IVPB SCH (09:42)
[2023-06-25] MEDS: methylPREDNISolone NA SUCC 40 MG/1 ML VIAL IVPUSH SCH (10:18)
[2023-06-25] MEDS: NOREPINEPHRINE BITARTRATE/D5W 8 MG/250 ML BAG IVPB SCH (12:56)
[2023-06-25] MEDS: COLLAGENASE CLOSTRIDIUM HIST. 30 GRAMS TUBE TP SCH (14:47)
[2023-06-25] MEDS: MIDODRINE HCL 5 MG TABLET PO SCH (18:13)
[2023-06-25] MEDS: PANTOPRAZOLE SODIUM 40 MG VIAL IVPUSH SCH (21:34)
[2023-06-26 06:17] LABS: HEMATOCRIT 23.4 % (32.4-45.2); HEMOGLOBIN 8.1 GM/dL (10.7-15.3); MCH 29.5 pg (25.7-33.7); MCHC 34.7 g/dl (32.0-36.0); MEAN CELL VOLUME 84.8 fl (80-96); MEAN PLT VOLUME 9.5 fl (7.5-11.1); RBC 2.76 M/mm3 (3.60-5.2); RDW 16.5 % (11.6-15.6); WHITE BLOOD COUNT 7.2 K/mm3 (4.0-10.0)
[2023-06-26 06:20] LABS: CHLORIDE 97 mmol/L (98-107); SODIUM 130 mmol/L (136-145)
[2023-06-26 06:22] LABS: CALCIUM 7.5 mg/dL (8.5-10.1)
[2023-06-26 06:23] LABS: CO2 23 mmol/L (21-32); GLUCOSE,RANDOM 121 mg/dL (74-106)
[2023-06-26 06:25] LABS: MAGNESIUM 2.2 mg/dL (1.8-2.4)
[2023-06-26 06:26] LABS: CREATININE 1.3 mg/dL (0.55-1.3); PHOSPHOROUS 4.1 mg/dL (2.5-4.9); SGOT/AST 25 U/L (15-37); SGPT/ALT 18 U/L (13-61)
[2023-06-26 06:28] LABS: TOT PROT 4.5 g/dl (6.4-8.2)
[2023-06-26 06:30] LABS: ALK PHOS 361 U/L (45-117); ANION GAP 10 mmol/L (4-13); POTASSIUM 2.9 mmol/L (3.5-5.1)
[2023-06-26] MEDS: ALBUTEROL SO4 2.5/IPRATROPIUM 0.5 INH SOL 3 ML VIAL.NEB. NEB PRN (08:05)
[2023-06-26 08:15] LABS: PLATELET COUNT 28 10^3/uL (134-434)
[2023-06-26] MEDS: KCL 10 MEQ IVPB 10 MEQ/100 ML INFUS.BAG IVPB SCH (08:19)
[2023-06-26 09:38] LABS: ANISOCYTOSIS 0; MACROCYTOSIS 0; PLATELET ESTIMATE DECREASED
[2023-06-26] MEDS: COLLAGENASE CLOSTRIDIUM HIST. 30 GRAMS TUBE TP SCH (11:22)
[2023-06-26] MEDS: KCL 20 MEQ PREMIX BAG 20 MEQ/100 ML INFUS.BAG IVPB SCH (12:58)
[2023-06-26] MEDS: AMINO ACIDS 4.25%/D5W 1,000 ML IV SCH (14:16)
[2023-06-26] MEDS: POTASSIUM CHLORIDE 20 MEQ in AMINO ACIDS 4.25%/D5W 1,000 ML IV SCH (15:49)
[2023-06-27] MEDS: ALBUTEROL SO4 2.5/IPRATROPIUM 0.5 INH SOL 3 ML VIAL.NEB. NEB PRN (00:20)
[2023-06-27] MEDS ORDERED: IPRATROPIUM BR 0.02% 0.5 MG/2.5 ML VIAL.NEB. NEB PRN (00:29)
[2023-06-27] MEDS: MEROPENEM 1 GM in DEXTROSE 5%-WATER 100 ML IVPB SCH (01:13)
[2023-06-27] MEDS: FUROSEMIDE 40 MG/4 ML INJECTABLE VIAL IVPUSH SCH (05:45)
[2023-06-27] MEDS: INSULIN ASPART SLIDING SCALE (NOVOLOG) 1 VIAL SQ SCH (06:03)
[2023-06-27] MEDS ORDERED: COLLAGENASE CLOSTRIDIUM HIST. 30 GRAMS TUBE TP SCH (10:00)
[2023-06-27 10:41] LABS: HEMATOCRIT 26.3 % (32.4-45.2); HEMOGLOBIN 9.1 GM/dL (10.7-15.3); MCH 29.9 pg (25.7-33.7); MCHC 34.8 g/dl (32.0-36.0); MEAN CELL VOLUME 85.9 fl (80-96); MEAN PLT VOLUME 10.2 fl (7.5-11.1); PLATELET COUNT 38 10^3/uL (134-434); RBC 3.06 M/mm3 (3.60-5.2); RDW 16.3 % (11.6-15.6)
[2023-06-27] MEDS: HYDROmorphone HCl 2 MG/ML VIAL IVPUSH PRN (10:59)
[2023-06-27] MEDS: PANTOPRAZOLE SODIUM 40 MG VIAL IVPUSH SCH (10:59)
[2023-06-27] MEDS: methylPREDNISolone NA SUCC 40 MG/1 ML VIAL IVPUSH SCH (10:59)
[2023-06-27 11:04] LABS: POTASSIUM 3.6 mmol/L (3.5-5.1)
[2023-06-27 11:06] LABS: CALCIUM 7.5 mg/dL (8.5-10.1)
[2023-06-27 11:07] LABS: ALBUMIN 2.2 g/dl (3.4-5.0); BLOOD UREA NITROGEN 58.4 mg/dL (7-18)
[2023-06-27 11:10] LABS: CREATININE 1.3 mg/dL (0.55-1.3)
[2023-06-27 11:11] LABS: BILIRUBIN,TOTAL 1.4 mg/dL (0.2-1)
[2023-06-27 11:18] LABS: ANISOCYTOSIS 0; MACROCYTOSIS 0
[2023-06-28 09:24] LABS: HEMATOCRIT 25.1 % (32.4-45.2); HEMOGLOBIN 8.7 GM/dL (10.7-15.3); MCH 29.5 pg (25.7-33.7); MCHC 34.5 g/dl (32.0-36.0); MEAN CELL VOLUME 85.5 fl (80-96); MEAN PLT VOLUME 10.1 fl (7.5-11.1); RBC 2.94 M/mm3 (3.60-5.2); RDW 16.4 % (11.6-15.6); WHITE BLOOD COUNT 7.1 K/mm3 (4.0-10.0)
[2023-06-28 09:28] LABS: PLATELET COUNT 30 10^3/uL (134-434)
[2023-06-28 09:56] LABS: ANISOCYTOSIS 0; MACROCYTOSIS 0
[2023-06-28 09:57] LABS: POTASSIUM 3.1 mmol/L (3.5-5.1)
[2023-06-28 10:07] LABS: BLOOD UREA NITROGEN 65.7 mg/dL (7-18); CALCIUM 7.7 mg/dL (8.5-10.1); MAGNESIUM 1.9 mg/dL (1.8-2.4)
[2023-06-28 10:08] LABS: ALBUMIN 2.1 g/dl (3.4-5.0)
[2023-06-28 10:11] LABS: CREATININE 1.2 mg/dL (0.55-1.3)
[2023-06-28 10:12] LABS: BILIRUBIN,TOTAL 1.2 mg/dL (0.2-1); TOT PROT 4.7 g/dl (6.4-8.2)
[2023-06-28] MEDS: KCL 10 MEQ IVPB 10 MEQ/100 ML INFUS.BAG IVPB SCH (20:00)
[2023-06-28] MEDS: ALBUMIN HUMAN 25% 100 ML VIAL IV ONE (21:41)
[2023-06-29] MEDS ORDERED: FENTANYL PATCH WASTE TD PRN (11:55)
[2023-06-29] MEDS: fentaNYL 12mcg/hr PATCH.TD72 TD SCH (13:01)
[2023-06-29] MEDS: KCL 10 MEQ IVPB 10 MEQ/100 ML INFUS.BAG IVPB SCH (13:47)
[2023-06-29] MEDS: ALBUMIN HUMAN 25% 12.5 GM/50 ML VIAL IV ONE (16:01)
[2023-06-29] MEDS: COLLAGENASE CLOSTRIDIUM HIST. 30 GRAMS TUBE TP SCH (17:25)
[2023-06-30 10:08] LABS: POTASSIUM 3.2 mmol/L (3.5-5.1)
[2023-06-30 10:13] LABS: CALCIUM 7.7 mg/dL (8.5-10.1)
[2023-06-30 10:14] LABS: BLOOD UREA NITROGEN 60.5 mg/dL (7-18); MAGNESIUM 1.5 mg/dL (1.8-2.4)
[2023-06-30 10:17] LABS: CREATININE 0.7 mg/dL (0.55-1.3)
[2023-06-30 10:18] LABS: BILIRUBIN,TOTAL 1.9 mg/dL (0.2-1); TOT PROT 5.1 g/dl (6.4-8.2)
[2023-06-30 10:26] LABS: HEMATOCRIT 22.2 % (32.4-45.2); HEMOGLOBIN 7.8 GM/dL (10.7-15.3); MCH 29.4 pg (25.7-33.7); MCHC 35.4 g/dl (32.0-36.0); MEAN PLT VOLUME 9.6 fl (7.5-11.1); RBC 2.67 M/mm3 (3.60-5.2); RDW 16.8 % (11.6-15.6); WHITE BLOOD COUNT 4.5 K/mm3 (4.0-10.0)
[2023-06-30 11:21] LABS: PLATELET COUNT 23 10^3/uL (134-434)
[2023-06-30] MEDS: MAGNESIUM SULFATE IN WATER 2 GM/50 ML IVPB IVPB ONE (18:33)
[2023-06-30] MEDS: KCL 10 MEQ IVPB 10 MEQ/100 ML INFUS.BAG IVPB SCH (18:57)
[2023-07-01 09:04] LABS: HEMATOCRIT 26.2 % (32.4-45.2); HEMOGLOBIN 9.1 GM/dL (10.7-15.3); MCH 29.4 pg (25.7-33.7); MCHC 34.8 g/dl (32.0-36.0); MEAN CELL VOLUME 84.4 fl (80-96); MEAN PLT VOLUME 9.9 fl (7.5-11.1); PLATELET COUNT 46 10^3/uL (134-434); RDW 16.6 % (11.6-15.6)
[2023-07-01 09:09] LABS: WHITE BLOOD COUNT 7.2 K/mm3 (4.0-10.0)
[2023-07-01 09:27] LABS: POTASSIUM 3.5 mmol/L (3.5-5.1)
[2023-07-01 09:31] LABS: MAGNESIUM 2.3 mg/dL (1.8-2.4)
[2023-07-01 09:34] LABS: CREATININE 0.7 mg/dL (0.55-1.3)
[2023-07-02] MEDS: fentaNYL 25mcg/hr PATCH.TD72 TD SCH (10:32)
[2023-07-02] MEDS: FENTANYL PATCH WASTE TD PRN (19:04)
[2023-07-03 00:01] VITALS: BMI 21.8
[2023-07-04 08:20] LABS: HEMATOCRIT 21.6 % (32.4-45.2); HEMOGLOBIN 7.7 GM/dL (10.7-15.3); MCHC 35.5 g/dl (32.0-36.0); MEAN CELL VOLUME 81.5 fl (80-96); MEAN PLT VOLUME 9.2 fl (7.5-11.1); RBC 2.65 M/mm3 (3.60-5.2); RDW 16.4 % (11.6-15.6); WHITE BLOOD COUNT 3.1 K/mm3 (4.0-10.0)
[2023-07-04 08:23] LABS: POTASSIUM 3.3 mmol/L (3.5-5.1)
[2023-07-04 08:57] LABS: PLATELET COUNT 18 10^3/uL (134-434)
[2023-07-04 10:00] LABS: ALBUMIN 2.5 g/dl (3.4-5.0); BILIRUBIN,TOTAL 1.7 mg/dL (0.2-1); BLOOD UREA NITROGEN 77.4 mg/dL (7-18); CALCIUM 8.2 mg/dL (8.5-10.1); CREATININE 0.7 mg/dL (0.55-1.3); TOT PROT 4.8 g/dl (6.4-8.2)
[2023-07-04 10:10] LABS: ANISOCYTOSIS 2+; MACROCYTOSIS 0
[2023-07-04] MEDS: POTASSIUM CHLORIDE 20 MEQ in AMINO ACIDS 4.25%/D5W 1,000 ML IV SCH (11:25)
[2023-07-04] MEDS: KCL 10 MEQ IVPB 10 MEQ/100 ML INFUS.BAG IVPB SCH (12:46)
[2023-07-04] MEDS: MORPHINE 100 MG/100 ML MG IVPB SCH (12:51)
[2023-07-05 14:37] VITALS: BP 103/63; PULSE 80; RESP 18; TEMP 98
[2023-07-05] MEDS ORDERED: MORPHINE 100 MG/100 ML MG IVPB SCH (16:13)
== END 2023-07-05 20:40 | disposition expired | DRG 871 ==
LOC: JER 15:18 → JERBED 18:35 → JICU 21:10 → J6S 06-26 18:34
PROVIDERS: ADMIT Internal Medicine Pulmonary Disease; ATTEND Internal Medicine
PROC: 05HD33Z Insertion of Infusion Device into Right Cephalic Vein, Percutaneous Approach (ICD-10-PCS; principal; 2023-06-23)
PROC: B54MZZA Ultrasonography of Right Upper Extremity Veins, Guidance (ICD-10-PCS; 2023-06-23)
PROC: 4A133B1 Monitoring of Arterial Pressure, Peripheral, Percutaneous Approach (ICD-10-PCS; 2023-06-23)
PROC: 4A133J1 Monitoring of Arterial Pulse, Peripheral, Percutaneous Approach (ICD-10-PCS; 2023-06-23)
DX: A41.89 Other specified sepsis (principal); G93.41 Metabolic encephalopathy; J18.9 Pneumonia, unspecified organism; J96.01 Acute respiratory failure with hypoxia; R65.21 Severe sepsis with septic shock; N39.0 Urinary tract infection, site not specified; M33.10 Other dermatomyositis, organ involvement unspecified; N17.9 Acute kidney failure, unspecified; E87.1 Hypo-osmolality and hyponatremia; D61.818 Other pancytopenia; C34.90 Malignant neoplasm of unspecified part of unspecified bronchus or lung; D69.6 Thrombocytopenia, unspecified; K21.9 Gastro-esophageal reflux disease without esophagitis; I10 Essential (primary) hypertension; M17.12 Unilateral primary osteoarthritis, left knee; D64.9 Anemia, unspecified; E11.9 Type 2 diabetes mellitus without complications; M35.00 Sjogren syndrome, unspecified; B96.20 Unspecified Escherichia coli [E. coli] as the cause of diseases classified elsewhere; L89.150 Pressure ulcer of sacral region, unstageable; Z71.89 Other specified counseling
CPT/HCPCS: 0241U-QW; 36415; 36600; 71045-TC-FY; 71250-TC; 74176-TC; 76775-TC; 80048; 80053; 81003; 82272; 82308; 82550; 82803; 82962; 83036; 83605; 83690; 83735; 83880; 84100; 84436; 84443; 84484; 85025; 85027; 85384; 85610; 85730; 86140; 86850; 86900; 86901; 87040; 87086; 87186; 87899; 93005; 93010; 93306-TC; 93971; 94640; 94660; 97162-GP; 99285-25; G0480; J0131; J1644; J3490; P9047